=== PATIENT | male | born 1940 | race Caucasian/White ===

== ENCOUNTER 2023-01-27 12:02 | Emergency (ER) | payer MEDICARE, MEDICAID ==
[~2023-01-27] VITALS: Ht 170.2 cm; Wt 91.0 kg
[2023-01-27 12:13] VITALS: TEMP 98.7; O2SAT 100
[2023-01-27] MEDS ORDERED: IBUPROFEN 600MG TABLET PO ONE (14:00)
[2023-01-27 15:09] VITALS: BP 130/61; PULSE 64; RESP 17
== END 2023-01-27 15:20 | disposition home or self-care (01) ==
LOC: ER 12:02
DX: S06.0X0A Concussion without loss of consciousness, initial encounter (principal); Z76.0 Encounter for issue of repeat prescription; W18.30XA Fall on same level, unspecified, initial encounter; Y93.89 Activity, other specified; Y92.89 Other specified places as the place of occurrence of the external cause; Y99.8 Other external cause status
CPT/HCPCS: 71045; 72170; 99284